=== PATIENT | male | born 1990 | race African-American/Black ===

== ENCOUNTER 2019-07-20 10:37 | Emergency (ER) | payer BC, OTHER | END 2019-07-20 11:24 | disposition home or self-care (01) | LOC: EDH 10:37 | DX: J01.00 Acute maxillary sinusitis, unspecified (principal); Z87.891 Personal history of nicotine dependence ==

== ENCOUNTER 2019-11-16 19:56 | Emergency (ER) | payer OTHER ==
[2019-11-16] MEDS ORDERED: TETRACAINE HCL 0.5% 4 ML OPHTH SOLN ONE (20:30)
[2019-11-16] MEDS ORDERED: FLUORESCEIN SODIUM 1 STRIP STRIP ONE (20:31)
== END 2019-11-16 21:05 | disposition home or self-care (01) ==
LOC: EDH 19:56
DX: S05.01XA Injury of conjunctiva and corneal abrasion without foreign body, right eye, initial encounter (principal); R51 Headache; X58.XXXA Exposure to other specified factors, initial encounter; Y93.89 Activity, other specified; Y92.89 Other specified places as the place of occurrence of the external cause; Y99.8 Other external cause status

== ENCOUNTER 2020-06-14 18:04 | Emergency (ER) | payer OTHER ==
[2020-06-14 18:58] LABS: BASOPHILS % (AUTO) 0.6 % (0.0-5.0); EOSINOPHILS % (AUTO) 1.7 % (0.0-8.0); HEMATOCRIT 44.4 % (42-54); LYMPHOCYTES % (AUTO) 12.2 % (21.0-51.0); MEAN CORPUSCULAR HEMOGLOBIN 25.3 pg (27.0-33.0); MEAN CORPUSCULAR HGB CONC 33.1 g/dL (32.0-36.0); MEAN CORPUSCULAR VOLUME 76.4 fL (79-99); MONOCYTES % (AUTO) 8.1 % (3.0-13.0); NEUTROPHILS % (AUTO) 76.9 % (40.0-77.0); PLATELET COUNT (AUTO) 340 K/uL (130-400); RED BLOOD CELL COUNT(AUTO) 5.81 MIL/uL (4.50-6.20); RED CELL DISTRIBUTION WIDTH 14.4 % (11.0-15.5); WHITE BLOOD COUNT (AUTO) 12.7 K/uL (4.8-10.8)
[2020-06-14] MEDS ORDERED: ACETAMINOPHEN EXTRA STRENGTH 500 MG TABLET ONE (19:19)
[2020-06-14] MEDS ORDERED: PENICILLIN V POTASSIUM 500 MG TABLET ONE (19:19)
[2020-06-14] MEDS ORDERED: KETOROLAC TROMETHAMINE 30MG/ML ONE (19:23)
== END 2020-06-14 19:56 | disposition home or self-care (01) ==
LOC: EDH 18:04
DX: K02.7 Dental root caries (principal)
CPT/HCPCS: 36415; 85025; 96374; 99283; J1885